=== PATIENT | male | born 1965 | race Caucasian/White ===

== ENCOUNTER 2016-06-18 09:48 | Day surgery (SDC) | payer OTHER ==
[~2016-06-18] VITALS: Ht 157.5 cm; Wt 91.4 kg
[~2016-06-18 09:48] MED LIST: MULT-552 PO
[2016-06-18] MEDS ORDERED: PROPOFOL 20 ML ONE (10:28)
[2016-06-18] MEDS ORDERED: LIDOCAINE 2% (SDV) 5 ML INJ ONE (10:28)
[2016-06-18] MEDS ORDERED: OMEP40CA6 PO (10:35)
[2016-06-18 10:37] VITALS: Ht 157.5 cm; Wt 91.4 kg
[2016-06-18 10:55] VITALS: BP 122/93; PULSE 56; RESP 12
[2016-06-18 11:50] VITALS: BP 116/80; PULSE 55
--- NOTE | 2016-06-18 16:57 | GILP ---
DATE OF PROCEDURE: NAME OF PROCEDURE: Esophagogastroduodenoscopy and biopsy. SURGEON: Rogers Denise MD PREOPERATIVE DIAGNOSIS: Vomiting. POSTOPERATIVE DIAGNOSES: 1. Hiatal hernia. 2. 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 3. Gastritis. 4. Gastric mucosal biopsies were taken for Helicobacter pylori test. INDICATION FOR THE PROCEDURE: Mr. Osorio Nick is a 51-year-old male patient who was complaining of vomiting. He was status post gastric sleeve surgery. The patient was scheduled for endoscopic e xamination. The procedure and possible complications were well explained to the patient, he understood and conse nted to the procedure. DESCRIPTION OF PROCEDURE: Under the influence of anesthesia, the gastroscope was carefully introduc ed into the esophagus and under direct vision, it was advanced to the stomach and through the pyloru s into the duodenal bulb and descending duodenum. FINDINGS: ESOPHAGUS: The patient had a hiatal hernia. STOMACH: The patient was status post gastric sleeve surgery with narrowing of the gastric lumen. T he patient was noted to have gastritis in the pyloric area. Biopsies were taken for H. pylori test. DUODENUM: Normal. He tolerated the procedure very well and there was no complication from the procedure. At the end o f the procedure, he was awake with stable vital signs and he was discharged home to the care of his family. IMPRESSION: 1. Hiatal hernia. 2. 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 3. Gastritis. 4. Gastric mucosal biopsies were taken for Helicobacter pylori test. PLAN: 1. Continue omeprazole. 2. Upper GI x-ray for further evaluation. Dictated By: ROGERS CARR/GLORIA Conf#: [id number] DID#: [id number]
--- NOTE | 2016-06-18 17:09 | CONS ---
DATE OF ADMISSION: 06/18/2016 DATE OF CONSULTATION: TYPE OF CONSULTATION: Preoperative gastroenterology. Dr. Leblanc, I thank you very much for this kind referral. HISTORY OF PRESENT ILLNESS: Mr. Osorio Nick is a 51-year-old male patient who has been referred to me for further evaluation of vomiting. Patient is known to have had gastritis and gastroesophage al reflux disease. The patient is status post a gastric sleeve surgery. He is not taking any nonst eroidal anti-inflammatory agents. There is no history of gallstones. He does not have any fever, c hills or jaundice. He does not have any liver disease. Patient had colonoscopy 2 years ago and he was noted to have diverticulosis of the colon and colon polyp. He is not a hypertensive or diabetic . He does not have any heart disease or lung problem. There is no history of kidney disease. SOCIAL HISTORY: He is a nonsmoker. There is no history of alcohol abuse. FAMILY HISTORY: Negative for gastrointestinal tract neoplasm. ALLERGIES: THERE IS NO HISTORY OF SIGNIFICANT DRUG ALLERGY. MEDICATIONS: Omeprazole. PHYSICAL EXAMINATION VITAL SIGNS: He is 5 feet 2 inches tall, and he weighs 197 pounds. HEART: Normal 1st and 2nd heart sounds. LUNGS: Clear. ABDOMEN: Soft without any distention. Liver and spleen are not palpable. There are no masses. Th ere is no focal tenderness. Normal bowel sounds are heard. CENTRAL NERVOUS SYSTEM: Does not reveal any focal neurological deficit. IMPRESSION 1. Vomiting. 2. Gastroesophageal reflux disease. 3. Patient has been taking omeprazole. 4. Status post gastric sleeve surgery. 5. Patient had colonoscopy 2 years ago and he was noted to have diverticulosis of the colon and col on polyp. 6. Obesity. PLAN 1. Continue omeprazole. 2. Endoscopy for further evaluation. 3. Because of the obesity with a short, thick neck, he needs monitored anesthesia care for the proc edure. The procedure and possible complications are well explained to the patient. He understands and cons ents to the procedure. I thank you once again. With warmest personal regards, Dictated By: RGOERS SOUSA MD GD/NTS Conf#: [id number] DID#: [id number] CC: DR. JANICE PATE;*EndCC*
== END 2016-06-18 14:13 | disposition home or self-care (01) ==
LOC: GIL 09:48
PROVIDERS: ATTEND Internal Medicine Gastroenterology
DX: K29.70 Gastritis, unspecified, without bleeding (principal); K44.9 Diaphragmatic hernia without obstruction or gangrene; K21.9 Gastro-esophageal reflux disease without esophagitis; Z98.84 Bariatric surgery status; Z86.010 Personal history of colon polyps; Z87.19 Personal history of other diseases of the digestive system; E66.9 Obesity, unspecified; Z68.36 Body mass index [BMI] 36.0-36.9, adult
CPT/HCPCS: 43239; 87081; Z7610

== ENCOUNTER 2017-07-26 13:52 | Emergency (ER) | END 2017-07-26 19:35 | disposition home or self-care (01) ==